=== PATIENT | female | born 1960 | race Caucasian/White ===

== ENCOUNTER 2017-08-13 11:07 | Emergency (ER) | payer MEDICAID ==
[~2017-08-13] VITALS: Ht 165.1 cm; Wt 77.0 kg
[~2017-08-13 11:07] MED LIST: IBUP-777; PSEU30TA29
[2017-08-13] MEDS ORDERED: KETOROLAC 30MG/ML VIAL IV STA (14:12)
[2017-08-13] MEDS ORDERED: ONDANSETRON HCL 4MG/2ML VIAL IV STA (14:12)
[2017-08-13] MEDS ORDERED: MORPHINE SULFATE 10 MG/ML CPJ IV ONE (14:15)
[2017-08-13] MEDS ORDERED: LORAZEPAM 2MG/ML CPJ IV ONE (14:15)
[2017-08-13 14:54] LABS: INR 1.1; PROTHROMBIN TIME 10.9 sec (9.4-11.6)
[2017-08-13 15:01] LABS: BASOPHILS % 0.3 % (0.0-2.0); EOSINOPHILS % 0.8 % (0.0-5.0); HEMATOCRIT. 39.5 % (36.0-48.0); HEMOGLOBIN. 13.2 g/dL (12.0-16.0); LYMPHOCYTES % 18.1 % (20.0-50.0); MEAN CORPUSCULAR HEMOGLOBIN 28.4 pg (28.0-32.0); MEAN CORPUSCULAR VOLUME 84.9 fL (81.0-99.0); MEAN PLATELET VOLUME 8.7 fl (7.4-10.4); MONOCYTES % 5.1 % (2.0-8.0); NEUTROPHILS % 75.7 % (40.0-76.0); PLATELET 282 x1000/uL (130-400); RED BLOOD CELL COUNT 4.66 mill/uL (4.2-5.4); RED CELL DISTRIBUTION WIDTH 14.7 % (11.6-14.6)
[2017-08-13 15:09] LABS: CARBON DIOXIDE 27 mEq/L (21-32); CHLORIDE 104 mEq/L (98-107); ETHANOL BLOOD < 10 mg/dL; TROPONIN I < 0.02 ng/mL (0.00-0.04)
[2017-08-13 16:59] VITALS: BP 128/76
== END 2017-08-13 17:01 | disposition home or self-care (01) ==
LOC: ER 11:23 → ENRESERV 16:18 → CANRESERV 16:18 → ENRESERV 16:20 → CANBEDREQ 16:56 → ER 17:01
DX: M54.12 Radiculopathy, cervical region (principal); R07.9 Chest pain, unspecified; H53.8 Other visual disturbances; M32.9 Systemic lupus erythematosus, unspecified
CPT/HCPCS: 36415; 70450; 71010; 72125; 80053; 83880; 84443; 84484; 85025; 85610; 93005; 96374; 96375; 99285; G0482; J1885; J2060; J2270; J2405; Z7610

== ENCOUNTER 2019-05-13 17:58 | Emergency (ER) | payer MEDICAID ==
[~2019-05-13] VITALS: Ht 165.1 cm; Wt 75.0 kg
[2019-05-13] MEDS ORDERED: KETOROLAC 30MG/ML VIAL IV STA (22:59)
[2019-05-13] MEDS ORDERED: ONDANSETRON HCL 4MG/2ML INJ IV STA (22:59)
[2019-05-13 23:43] LABS: HEMATOCRIT. 33.1 % (36.0-48.0); HEMOGLOBIN. 10.6 g/dL (12.0-16.0); MEAN CORPUSCULAR HEMOGLOBIN 24.2 pg (28.0-32.0); MEAN CORPUSCULAR VOLUME 75.6 fL (81.0-99.0); MEAN PLATELET VOLUME 8.4 fl (7.4-10.4); PLATELET 347 x1000/uL (130-400); RED BLOOD CELL COUNT 4.38 mill/uL (4.2-5.4)
[2019-05-13 23:50] LABS: CHLORIDE 110 mEq/L (98-107)
[2019-05-14 00:01] LABS: CLARITY URINE CLEAR (CLEAR); COLOR URINE YELLOW (YELLOW); KETONES URINE 1+ (NEGATIVE); LEUKOCYTE ESTERASE URINE TRACE (NEGATIVE); NITRITE URINE NEGATIVE (NEGATIVE); OCCULT BLOOD URINE 2+ (NEGATIVE); PROTEIN URINE TRACE (NEGATIVE); SPECIFIC GRAVITY URINE 1.029 (1.005-1.030)
[2019-05-14 00:19] LABS: PLATELET ESTIMATE NORMAL
[2019-05-14] MEDS ORDERED: ACETAMINOPHEN WITH CODEINE 300/30MG TABLET PO ONE (01:45)
[2019-05-14] MEDS ORDERED: IBUPROFEN 600MG TABLET PO ONE (01:45)
[2019-05-14] MEDS ORDERED: ACETAMINOPHEN 325MG TABLET PO ONE (01:45)
[2019-05-14 01:52] VITALS: BP 127/72
== END 2019-05-14 01:56 | disposition home or self-care (01) ==
LOC: ER 17:58
DX: N23 Unspecified renal colic (principal); N13.30 Unspecified hydronephrosis
CPT/HCPCS: 36415; 76705; 80053; 81003; 83690; 85025; 85610; 96374; 96375; 99284; J1885; J2405